=== PATIENT | male | born 1945 | race Hispanic/Latino ===

== ENCOUNTER 2017-12-15 06:46 | Day surgery (SDC) | payer MEDICARE ==
[~2017-12-15] VITALS: Ht 172.7 cm; Wt 79.0 kg
[~2017-12-15 06:46] MED LIST: ATOR10TA69 PO; ENAL20TA PO; HYOS-28 PO; SERT50TA12 PO
[2017-12-15] MEDS ORDERED: SODIUM CHLORIDE 0.9% 1000ML 1,000 ML IV ONE (06:50)
[2017-12-15 07:20] VITALS: BP 136/82
[2017-12-15 08:23] VITALS: BP 103/57
== END 2017-12-15 09:00 ==
LOC: DAH 06:46 → ENDO 06:46
PROVIDERS: ATTEND Internal Medicine Gastroenterology
DX: K57.30 Diverticulosis of large intestine without perforation or abscess without bleeding (principal); K21.9 Gastro-esophageal reflux disease without esophagitis; I10 Essential (primary) hypertension; E78.5 Hyperlipidemia, unspecified; F17.210 Nicotine dependence, cigarettes, uncomplicated; F32.9 Major depressive disorder, single episode, unspecified; G47.33 Obstructive sleep apnea (adult) (pediatric); Z83.3 Family history of diabetes mellitus; Z98.890 Other specified postprocedural states; Z88.8 Allergy status to other drugs, medicaments and biological substances
CPT/HCPCS: 45378; 93005; A4606; J7030

== ENCOUNTER → 2018-04-08 | Outpatient (CLI) | payer MEDICARE | END | disposition home or self-care (01) | LOC: RAH 12:16 | PROVIDERS: ATTEND Psychiatry & Neurology Psychiatry | DX: S46.912A Strain of unspecified muscle, fascia and tendon at shoulder and upper arm level, left arm, initial encounter (principal); X58.XXXA Exposure to other specified factors, initial encounter; Y93.89 Activity, other specified; Y92.89 Other specified places as the place of occurrence of the external cause; Y99.8 Other external cause status | CPT/HCPCS: 73221 ==

== ENCOUNTER 2019-02-11 11:09 | Emergency (ER) | payer OTHER, MEDICARE ==
[2019-02-11] MEDS ORDERED: TETANUS/DIPHTHERIA TOXOID [ADULT] 0.5 ML VIAL IM ONE (12:08)
== END 2019-02-11 12:39 | disposition home or self-care (01) ==
LOC: EDH 11:09
DX: S50.01XA Contusion of right elbow, initial encounter (principal); S70.02XA Contusion of left hip, initial encounter; S40.012A Contusion of left shoulder, initial encounter; S00.31XA Abrasion of nose, initial encounter; E78.5 Hyperlipidemia, unspecified; I10 Essential (primary) hypertension; I48.91 Unspecified atrial fibrillation; F32.9 Major depressive disorder, single episode, unspecified; Z72.0 Tobacco use; W18.39XA Other fall on same level, initial encounter; Y93.01 Activity, walking, marching and hiking; Y92.89 Other specified places as the place of occurrence of the external cause; Y99.8 Other external cause status
CPT/HCPCS: 73030; 73080; 73502; 90471; 90714

== ENCOUNTER 2019-09-21 06:45 | Inpatient (IN) | payer OTHER, MEDICARE ==
[~2019-09-21] VITALS: Ht 182.9 cm; Wt 76.5 kg
[2019-09-21] MEDS ORDERED: SODIUM CHLORIDE 0.9% 1000ML 1,000 ML IV ONE ×3 (07:26→10:28)
[2019-09-21 08:14] LABS: BASOPHILS % (AUTO) 0.3 % (0.0-5.0); HEMATOCRIT 42.6 % (42-54); LYMPHOCYTES % (AUTO) 7.4 % (21.0-51.0); MEAN CORPUSCULAR HEMOGLOBIN 29.7 pg (27.0-33.0); MEAN CORPUSCULAR VOLUME 90.1 fL (79-99); MONOCYTES % (AUTO) 6.5 % (3.0-13.0); NEUTROPHILS % (AUTO) 85.8 % (40.0-77.0); PLATELET COUNT (AUTO) 183 K/uL (130-400); RED BLOOD CELL COUNT(AUTO) 4.73 MIL/uL (4.50-6.20); RED CELL DISTRIBUTION WIDTH 13.7 % (11.0-15.5); WHITE BLOOD COUNT (AUTO) 11.6 K/uL (4.8-10.8)
[2019-09-21] MEDS ORDERED: HYDROCODONE/ACETAMINOPHEN 5/325 MG TAB ONE (08:17)
[2019-09-21 08:26] LABS: CREATININE 1.2 mg/dL (0.5-1.5); INR 1.05 (0.85-1.15); PARTIAL THROMBOPLASTIN TIME 26.7 SEC (26.3-35.5); POTASSIUM 3.6 mmol/L (3.5-5.1)
[2019-09-21 08:42] LABS: ALBUMIN 3.5 g/dL (3.5-5.0); BILIRUBIN,TOTAL 0.8 mg/dL (0.2-1.0); TOTAL PROTEIN, SERUM 6.5 g/dL (6.0-8.3)
[2019-09-21 09:19] LABS: APPEARANCE,URINE Clear (CLEAR); BILIRUBIN,URINE Negative (NEGATIVE); COLOR,URINE Yellow (YELLOW); GLUCOSE, URINE (UA) Negative (NEGATIVE); KETONES,URINE Trace mg/dL (NEGATIVE); LEUKOCYTE ESTERASE ,URINE Trace (NEGATIVE); NITRATE,URINE Negative (NEGATIVE); OCCULT BLOOD,URINE Negative (NEGATIVE); PROTEIN,URINE Negative (NEGATIVE); UROBILINOGEN,URINE 0.2 mg/dL (0.2-1.0)
[2019-09-21 09:26] LABS: AMPHET/METH SCREEN,URINE NEGATIVE (NEGATIVE); BACTERIA,URINE Rare /HPF (None Seen); BARBITURATE SCREEN, URINE NEGATIVE (NEGATIVE); BENZODIAZEPINES SCREEN,URINE NEGATIVE (NEGATIVE); CANNABINOID SCREEN,URINE NEGATIVE (NEGATIVE); COCAINE SCREEN,URINE NEGATIVE (NEGATIVE); OPIATE SCREEN,URINE NEGATIVE (NEGATIVE); PHENCYCLIDINE SCREEN,URINE NEGATIVE (NEGATIVE); RBC,URINE 0-1 /HPF (0-1); SQUAMOUS EPITHELIAL CELL,UR Rare /HPF (0-2); WBC,URINE 0-1 /HPF (0-1)
--- NOTE | 2019-09-21 12:30 | NUR ---
ER ADMIT TO ROOM 307,AWAKE, AND TREATING NURSES RUDE. KEEPS GOING ON HE IS NOT A OMER CASE, HE IS PAYING US TO BE HERE. CLAIMS WE ARE NOT GIVING HIM THE CARE HE DESERVES AND KEEPS ON RAMBLING ON WE ARE NOT ANYBODY TO BE TAKING CARE OF HIM. VERY INPATIENT,KEEPS ATTEMPTING TO GET OUT F BED, DOES NOT FOLLOW ANY INST. GIVEN.
--- NOTE | 2019-09-21 13:30 | NUR ---
BLIND RT. EYE. Addendum: 09/21/19 at 1457 by RENEA MILLER RN RN Amended: Links added.
[2019-09-21 15:05] LABS: MYOGLOBIN 224 ng/mL (10-92); TROPONIN I < 0.04 ng/mL (0.00-0.06)
[2019-09-21 15:11] LABS: CREATINE KINASE, TOTAL 656 U/L (21-232)
[2019-09-21] MEDS ORDERED: POTASSIUM CHLORIDE 10% ELIXIR 20 MEQ/15 ML UDCUP PO PRN (15:15)
[2019-09-21] MEDS ORDERED: POTASSIUM CHLORIDE 20MEQ/100ML 100 ML IV PRN (15:15)
[2019-09-21] MEDS ORDERED: POTASSIUM CHLORIDE 20 MEQ ERTAB PO PRN (15:15)
[2019-09-21 16:00] VITALS: BP 157/80
--- NOTE | 2019-09-21 16:17 | NUR ---
DCP CM met with pt currently asleep at this time, called daughter on facesheet discussed dc plans. As per daughter, pt is semi-independent to assist w/ADL's, lives at home alone, daughter lives close by. Pt has a shower chair, walker, cane, [employer] nurse comes weekly, provider 25hrs/wk jennifer Rdz is pt's provider. 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 Denies any other equipments/services. Telephone consent RAJAN obtained from daughter Karon Bhat [phone]. Faxed order, ED clinicals, and PAS[facility], confirmation received. Spoke to Jaclyn Hebert, made aware pt pending H&P and PT eval and treat, will fax notes as soon as available, will come eval pt today/tomorrow. Pt will need EMS on transport will arrange once closer to dc day. Pending ins auth and acceptance. Primary nurse aware of poc. DC plan to SNF. CM to cont to follow up. Addendum: 09/21/19 at 1622 by JAILYN SMITH LVN CM Amended: Links added.
[2019-09-21] MEDS ORDERED: DIAZEPAM 5 MG TABLET PO PRN (16:45)
[2019-09-21] MEDS ORDERED: LORAZEPAM 2 MG/ML 1 ML VIAL ONE (16:55)
[2019-09-21] MEDS ORDERED: LORAZEPAM 2 MG/ML 1 ML VIAL IVP ONE (17:00)
[2019-09-21 19:50] VITALS: BP 140/87
[2019-09-21 20:49] LABS: MYOGLOBIN 184 ng/mL (10-92); TROPONIN I < 0.04 ng/mL (0.00-0.06)
[2019-09-21 20:51] LABS: CREATINE KINASE, TOTAL 675 U/L (21-232)
[2019-09-21] MEDS: LORAZEPAM 2 MG/ML 1 ML VIAL IM PRN (22:32)
[2019-09-22] VITALS: BP 128/69
[2019-09-22] MEDS: SODIUM CHLORIDE 0.9% 1000ML 1,000 ML IV SCH ×3 (00:05→10:08)
[2019-09-22 04:00] VITALS: BP 120/52
[2019-09-22 05:06] LABS: HEMATOCRIT 43.1 % (42-54); MEAN CORPUSCULAR HEMOGLOBIN 30.2 pg (27.0-33.0); MEAN CORPUSCULAR VOLUME 88.8 fL (79-99); PLATELET COUNT (AUTO) 177 K/uL (130-400); RED BLOOD CELL COUNT(AUTO) 4.85 MIL/uL (4.50-6.20); RED CELL DISTRIBUTION WIDTH 13.4 % (11.0-15.5); WHITE BLOOD COUNT (AUTO) 8.2 K/uL (4.8-10.8)
[2019-09-22 05:07] LABS: CREATININE 0.8 mg/dL (0.5-1.5); POTASSIUM 3.7 mmol/L (3.5-5.1)
[2019-09-22] MEDS ORDERED: PANTOPRAZOLE SODIUM 40 MG TABLET.DR PO ONE (05:23)
[2019-09-22] MEDS: PANTOPRAZOLE SODIUM 40 MG TABLET.DR PO SCH (06:53)
[2019-09-22] MEDS ORDERED: HYOSCYAMINE SULFATE 0.125 MG PO SCH (09:00)
[2019-09-22] MEDS ORDERED: SERTRALINE HCL 50 MG TABLET PO SCH ×2 (09:00)
[2019-09-22] MEDS ORDERED: NON-FORMULARY MEDICATION 1 EACH (Enalapril Maleate 20 MG) PO SCH (09:00)
[2019-09-22] MEDS ORDERED: ATORVASTATIN CALCIUM 10 MG TABLET PO SCH (09:00)
[2019-09-22] MEDS: ATORVASTATIN CALCIUM 10 MG TABLET PO SCH (10:03)
[2019-09-22] MEDS: ENALAPRIL MALEATE 10 MG TABLET PO SCH (10:07)
[2019-09-22 12:00] VITALS: BP 161/69
--- NOTE | 2019-09-22 14:27 | NUR ---
[facility] Note: Rena pending ins auth Spoke to Jaclyn Hebert, updated clinicals and PT notes received this morning forwarded to insurance. Pt pending ins auth at this time. Primary nurse aware. CM to cont to follow up.
[2019-09-22] MEDS ORDERED: BENZOCAINE/MENTH/CETYLPYRD CL 1 EACH LOZENGE MM PRN (15:30)
[2019-09-22 16:00] VITALS: BP 136/80
[2019-09-22 19:18] VITALS: BP 157/81
[2019-09-22] MEDS ORDERED: RISPERIDONE 1 MG TABLET ONE (20:45)
[2019-09-22] MEDS: RISPERIDONE 1 MG TABLET PO SCH (21:00)
[2019-09-22] MEDS: LORAZEPAM 2 MG/ML 1 ML VIAL IM PRN (23:32)
[2019-09-23 00:14] VITALS: BP 112/58
[2019-09-23 04:11] VITALS: BP 142/65
[2019-09-23] MEDS: SODIUM CHLORIDE 0.9% 1000ML 1,000 ML IV SCH ×2 (06:28→18:33)
[2019-09-23] MEDS: PANTOPRAZOLE SODIUM 40 MG TABLET.DR PO SCH (06:28)
[2019-09-23 08:14] VITALS: BP 168/102
[2019-09-23] MEDS: ATORVASTATIN CALCIUM 10 MG TABLET PO SCH ×2 (08:36→14:19)
[2019-09-23] MEDS: CITALOPRAM 20 MG TABLET PO SCH ×2 (08:36→14:18)
[2019-09-23] MEDS: ENALAPRIL MALEATE 10 MG TABLET PO SCH ×2 (08:37→14:25)
[2019-09-23] MEDS: RISPERIDONE 1 MG TABLET PO SCH ×2 (08:37→20:26)
[2019-09-23 08:56] LABS: CREATININE 0.7 mg/dL (0.5-1.5); POTASSIUM 4.2 mmol/L (3.5-5.1)
[2019-09-23 09:01] LABS: HEMATOCRIT 41.1 % (42-54); MEAN CORPUSCULAR HEMOGLOBIN 30.4 pg (27.0-33.0); MEAN CORPUSCULAR HGB CONC 33.9 g/dL (32.0-36.0); MEAN CORPUSCULAR VOLUME 89.6 fL (79-99); PLATELET COUNT (AUTO) 175 K/uL (130-400); RED BLOOD CELL COUNT(AUTO) 4.58 MIL/uL (4.50-6.20); RED CELL DISTRIBUTION WIDTH 13.6 % (11.0-15.5); WHITE BLOOD COUNT (AUTO) 7.2 K/uL (4.8-10.8)
--- NOTE | 2019-09-23 09:38 | NUR ---
HOLD DYSPHAGIA EVAL. ORDER FOR BEDSIDE SWALLOW STUDY RECEIVED. PATIENT SLEEPING AND NOT RESPONDING TO STIMULI. PER ONE-TO-ONE CAREGIVER, PATIENT REFUSING ORAL INTAKE, WHEN AWAKE. PIPE FITTER [employer] WILL FOLLOW-UP WITH PATIENT TO COMPLETE STUDY. PLAN AND CARE COORDINATED WITH NURSELADARIUS. Addendum: 09/23/[address] BART BURKETT Amended: Links added.
[2019-09-23] MEDS ORDERED: HYDRALAZINE HCL 20 MG/ML VIAL ONE (10:05)
[2019-09-23] MEDS: HYDRALAZINE HCL 20 MG/ML VIAL IV PRN (10:48)
[2019-09-23 11:45] VITALS: BP 150/89
[2019-09-23 12:22] LABS: MYOGLOBIN 83 ng/mL (10-92)
[2019-09-23 12:59] LABS: CREATINE KINASE, TOTAL 401 U/L (21-232)
[2019-09-23 16:12] VITALS: BP 104/49
--- NOTE | 2019-09-23 18:34 | NUR ---
NURSING NOTE Patient stayed asleep for most of the morning. Medications administered once he was awake and it was safe. His mentation was overall baseline clear during the day. No restless, no combativeness, no agitation. His daughter was with him twice during the day. Patient did well when his relative was here. At this time, he is starting to get confused.
[2019-09-23 20:00] VITALS: BP 111/57
[2019-09-23] MEDS: LORAZEPAM 2 MG/ML 1 ML VIAL IM PRN (22:41)
[2019-09-24] VITALS: BP 149/83
[2019-09-24 04:00] VITALS: BP 161/85
[2019-09-24] MEDS: HYDRALAZINE HCL 20 MG/ML VIAL IV PRN (05:17)
[2019-09-24] MEDS: PANTOPRAZOLE SODIUM 40 MG TABLET.DR PO SCH (06:39)
[2019-09-24] MEDS: SODIUM CHLORIDE 0.9% 1000ML 1,000 ML IV SCH (06:43)
[2019-09-24 08:00] VITALS: BP 121/67
--- NOTE | 2019-09-24 08:00 | NUR ---
ASSESSMENT.SITTER IN PLACE.
[2019-09-24 08:52] LABS: HEMATOCRIT 41.1 % (42-54); MEAN CORPUSCULAR HEMOGLOBIN 30.1 pg (27.0-33.0); MEAN CORPUSCULAR HGB CONC 33.9 g/dL (32.0-36.0); PLATELET COUNT (AUTO) 205 K/uL (130-400); RED BLOOD CELL COUNT(AUTO) 4.62 MIL/uL (4.50-6.20); RED CELL DISTRIBUTION WIDTH 13.7 % (11.0-15.5); WHITE BLOOD COUNT (AUTO) 7.7 K/uL (4.8-10.8)
[2019-09-24 09:10] LABS: CARBON DIOXIDE 27 mmol/L (21-32); CHLORIDE 108 mmol/L (101-111); CREATINE KINASE, TOTAL 261 U/L (21-232); CREATININE 0.7 mg/dL (0.5-1.5); GLOMERULAR FILTR. RATE CALC 117 mL/min (>60); GLUCOSE,RANDOM 97 mg/dL (70-105); MYOGLOBIN 71 ng/mL (10-92); POTASSIUM 3.7 mmol/L (3.5-5.1); SODIUM SERUM 144 mmol/L (136-145); TROPONIN I < 0.04 ng/mL (0.00-0.06); UREA NITROGEN, BLOOD 10 mg/dL (7-18)
[2019-09-24] MEDS ORDERED: ENALAPRIL MALEATE 5 MG TAB ONE (09:40)
--- NOTE | 2019-09-24 09:48 | NUR ---
CM Note: Rena ins auth Spoke to Jaclyn quezada/[facility] pt has ins auth. EMS arranged and faxed, primary nurse to call [facility] once pt ready to DC. Primary nurse aware. CM to cont to follow up.
[2019-09-24] MEDS: ATORVASTATIN CALCIUM 10 MG TABLET PO SCH (09:55)
[2019-09-24] MEDS: RISPERIDONE 1 MG TABLET PO SCH (09:56)
[2019-09-24] MEDS: CITALOPRAM 20 MG TABLET PO SCH (09:57)
--- NOTE | 2019-09-24 09:59 | NUR ---
KARISSA DYSPHAGIA FARAZ. OPERATOR CAVITY PUMP FOLLOWED UP WITH PATIENT TO COMPLETE DYSPHAGIA EVALUATION. PATIENT SLEEPING WITH MUMBLING RESPONSES WHEN PROVIDED WITH TACTILE CUES TO INCREASE ALERTNESS. PATIENT UNABLE TO PARTICIPATE IN DYSPHAGIA EVALUATION, AT THIS TIME. PER ONE-TO-ONE CAREGIVER, PATIENT REFUSED BREAKFAST MEAL AND BECAME AGGRESSIVE. OPERATOR CAVITY PUMP WILL FOLLOW-UP WITH PATIENT TO COMPLETE STUDY. PLAN AND CARE COORDINATED WITH NURSERENEA. Addendum: 09/24/[address] BART BURKETT Amended: Links added.
[2019-09-24] MEDS: LORAZEPAM 2 MG/ML 1 ML VIAL IM PRN (10:31)
--- NOTE | 2019-09-24 10:58 | NUR ---
RD UPDATE Pt no longer drinking Ensure, to be discontinued. RD to re-eval for nutritional supplementation as needed.
--- NOTE | 2019-09-24 11:40 | NUR ---
CM Note: Regarding [facility] CM spoke to Simone quezada/[facility], received order and clinicals. Stated facility is full capacity at this time possible bed availability Friday. Recommended to DC pt to [facility] and will follow up w/pt on Friday, if pt is still aggressive will screen pt to see it it will meet inpatient criteria w/facility. CM spoke to pt's daughter Karon, updated w/poc, agreeable for pt to dc to [facility] today and will keep in touch w/Simone quezada/[facility] if pt have aggressive behavior. Daughter requested to have pt be given night meds earlier around 9pm as she think that if med was given late is the reason why pt experiences aggressive behavior. CM spoke to Jaclyn w/[facility], udpated of the above. Aware will call Simone quezada/[facility] if pt continues to have aggressive behavior to have pt evaluated. Made aware of daughter's request to have nurse at the facility give night meds around 9pm. Verbalized understanding, will inform receiving nurse. EMS arranged and faxed today, primary nurse to call [facility] once pt ready to DC. Primary nurse aware of the above, instructive to instruct receiving nurse at [facility] to give night meds around 9pm. Verbalized understanding. CM to cont to follow up.
[2019-09-24 12:00] VITALS: BP 102/57
--- NOTE | 2019-09-24 17:30 | NUR ---
USING TEACH BACK PT. DISCHARGED TO [facility] NOW VIA FACILITY VAN/STAFF, SALINE LOCK REMOVED, TELE-MONITOR RETURNED TO 2ND. FLOOR. ACCOMPANIED PER DAUGHTER. REPOT GIVEN EARLIER TO JILL BLACK LVN.
== END 2019-09-24 17:20 | DRG 558 ==
LOC: EDH 06:45 → OBSVTOIN 10:18 → EDHIP 10:18 → 3BH 12:08
PROVIDERS: ADMIT Internal Medicine Critical Care Medicine; ATTEND Internal Medicine Critical Care Medicine
DX: M62.82 Rhabdomyolysis (principal); F03.90 Unspecified dementia, unspecified severity, without behavioral disturbance, psychotic disturbance, mood disturbance, and anxiety; I48.91 Unspecified atrial fibrillation; E78.5 Hyperlipidemia, unspecified; F17.200 Nicotine dependence, unspecified, uncomplicated; F31.9 Bipolar disorder, unspecified; R29.6 Repeated falls; I10 Essential (primary) hypertension; F39 Unspecified mood [affective] disorder; K43.9 Ventral hernia without obstruction or gangrene; W18.30XA Fall on same level, unspecified, initial encounter; F43.22 Adjustment disorder with anxiety; Z79.899 Other long term (current) drug therapy; Z82.49 Family history of ischemic heart disease and other diseases of the circulatory system; Z91.81 History of falling; Y93.89 Activity, other specified; Y92.89 Other specified places as the place of occurrence of the external cause; Y99.8 Other external cause status
CPT/HCPCS: 36415; 70450; 71045; 72125; 73030; 73110; 73502; 80048; 80053; 80305; 81001; 82550; 83874; 84484; 85025; 85027; 85610; 85730; 93005; 97039; 99291; G0378; J0360; J2060; J7030